=== PATIENT | male | born 1945 | race Caucasian/White ===

== ENCOUNTER → 2017-10-19 | Outpatient (CLI) | payer OTHER ==
[~2017-10-19] VITALS: Ht 165.1 cm; Wt 63.5 kg
[~2017-10-19] MED LIST: ASPIR-LOW81 MG PO; LIPITOR 20 MG T20 M1 PO; PEPCID20 MG PO; TUMS PO; VITAMIN D-32000 UNIT PO
--- NOTE | ~2017-10-19 | S ---
[facility] [place] [address] SURGICAL PATH RPT PROCEDURE Name: MILADIS,WILLIAM Room #: REG CLJoie MLupe.#: [id number] Admission: 10/19/17 Date of : 43 Discharge: Report #: [id number] Path Case #: [id number] PATHOLOGY REPORT COLLECTION DATE: 10/19/2017 RECEIVED DATE: 10/19/2017 SUBMITTING PHYS: Dr. Yonis Garcia OTHER PHYS: Dr. Huber Feng SPECIMEN(S) RECEIVED: A.Biopsy of distal esophagus rule out barretts * * * * * * * * * * * * FINAL DIAGNOSIS: A. Biopsy of distal esophagus rule out barretts: - Squamocolumnar junctional mucosa; chronically inflamed. - Negative for intestinal metaplasia. PATHOLOGIST: Kurtis Noriega M.D. REPORT ELECTRONICALLY SIGNED BY: Kurtis Noriega M.D. DATE/TIME: 10/20/2017 09:33 * * * * * * * * * * * * GROSS PATHOLOGY: Received in formalin labeled "Nayan Merchantdianne BX of distal esophagus," are 7 segments of cabello soft tissue measuring 1.9 x 1.1 x 0.2 cm in aggregate dimensions and ranging from 0.1 to 0.3 cm in maximum dimension. The specimen is submitted entirely in cassette A1. (TSD; 10/19/2017) CLINICAL HISTORY: Pre-OP DX: GERD, Hx polyps Post-OP DX: Esophagitis, hiatal hernia, duodenal diverticulum, diverticulosis INITIAL CPT CODE(S): A; 43770 Professional services performed by [facility] at [facility] [address], [place] [address] Technical services performed by [facility] at [address] [place] [id number]. [facility] [address] [place] [address] SURGICAL PATH RPT PROCEDURE Name: NAYAN REDDING Room #: REG ANDREW Guzman#: [id number] Admission: 10/19/17 Date of : 43 Discharge: Report #: [id number] Path Case #: [id number] [facility] [id number] [address] PHONE: [phone] DIRECTOR: Steve Larios M.D. * * * END OF REPORT * * *
--- NOTE | ~2017-10-19 | P ---
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 It is noted he recently stopped his PPI because of reports in the news that it cause dementia. Since then with H2 olive, he has had increasing reflux symptoms. He has not had recent dysphagia. 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 POSTOPERATIVE DIAGNOSES: 1. Grade B erosive esophagitis. 2. Small hiatus hernia. 3. Duodenal diverticulum. MEDICATIONS: Deep sedation with propofol per anesthesia. SPECIMEN: Biopsy of distal esophagus, rule out Mendes. ESTIMATED BLOOD LOSS: 3 mL. PROCEDURE: EGD with biopsy. FINDINGS: Prior to propofol sedation, procedure of upper endoscopy discussed with the patient as well as potential risks and its complications. He indicates he understands and desires to proceed. DESCRIPTION OF PROCEDURE: With the patient in left lateral decubitus position, the Fuji video endoscope was inserted in the cervical esophagus under direct vision without difficulty. Examination of this organ through its entire length revealed normal esophageal mucosa down to the distal esophagus. However, in the distal esophagus, there were several erosive columns extending up from the squamocolumnar junction of more than 2 cm. A stricture or mass was not seen. There were erosions at the GE junction. Findings were consistent with a grade B erosive esophagitis. There was irregularity and there is a question of Mendes's and biopsies were obtained. No masses were seen. In addition, a small hiatus hernia was identified. The mucosa and the hernia was normal. Scope was then advanced fully into the stomach, was examined on end view as well as retroflexed views. There was some erythema, but no ulcers or erosions. No [facility] [address] [place] [address] PROCEDURE REPORT Name: ROOSEVELT REDDING Room #: REG CLKaiser HaywardLupe.#: [id number] Admission: 10/19/17 Attend Phys: Yonis Garcia MD Discharge: Date of : 43 Report #: [id number] retained solids and liquids. Upon retroflexion, no mass lesions were seen. The hiatus hernia was seen. The pylorus, duodenal bulb, and postbulbar duodenal sweep were inspected. He was noted to have a moderate size duodenal diverticulum, but no other abnormalities were seen. At that point, the scope was withdrawn slowly and careful circumferential views confirmed the above findings. The patient tolerated procedure well. CONDITION OF THE PATIENT UPON DISCHARGE: Following procedure, the patient was drowsy and then prepared for colonoscopy. INSTRUCTIONS TO THE PATIENT AND FAMILY AT THE TIME OF DISCHARGE: He clearly has esophagitis. I advised him to resume his omeprazole 20 mg daily for at least 6 weeks. If tolerated, he may try to reduce to lower dosage. We will follow up on biopsies and make further recommendations with regard to Mendes's. If he does not have complete relief of symptoms, return to see me and follow up in the office. Proceed with colonoscopy at this time. <ELECTRONICALLY SIGNED> By: Yonis Garcia MD 10/24/17 1617 0838 [id number] Yonis Garcia MD /nt
--- NOTE | ~2017-10-19 | P ---
[facility] [place] [address] PROCEDURE REPORT Name: MILADISROOSEVELT VALLEJO Room #: REG [facility] MLupe.#: [id number] Admission: 10/19/17 Attend Phys: Yonis Garcia MD Discharge: Date of : 43 Report #: [id number] THIS REPORT FOR: //name// CC: Yonis Feng MD BRIEF HISTORY: The patient is a 72-year-old male with a history of colon polyps for high risk screening colonoscopy due to history of colon polyps. PREOPERATIVE DIAGNOSIS: High risk screening colonoscopy. POSTOPERATIVE DIAGNOSIS: Moderately severe diverticulosis coli, right and left colon. MEDICATIONS: Deep sedation with propofol per anesthesia. SPECIMEN: None. ESTIMATED BLOOD LOSS: None. PROCEDURE: Colonoscopy to cecum and terminal ileum. FINDINGS: Prior to propofol sedation, procedure of colonoscopy discussed with the patient as well as potential risks, benefits, and complications. He indicates he understands and desires to proceed. With the patient in left lateral decubitus position, digital examination was completed, which revealed no abnormalities. Subsequently, the WITOIi video colonoscope was introduced in the rectum, advanced under direct vision to the cecum. It was done with some difficulty as he had a fairly rigid sigmoid colon from his diverticular disease and with some difficulty, we were able to advance the scope through the sigmoid colon into the proximal colon. We ultimately reached the cecum, which was identified by the ileocecal valve and the appendiceal orifice. I was able to visualize the distal segment of terminal ileum, which was inspected and noted to be unremarkable. At that point, the scope was slowly withdrawn and careful circumferential views were obtained. The prep was good. The mucosa was within normal limits, normal vascular pattern, and normal light reflex. He does have significant diverticular disease including moderate disease in the proximal colon. As we withdrew the scope, again the mucosa was within normal limits. No neoplastic inflammatory changes were seen. As we withdrew the scope in left colon, particularly the distal descending and sigmoid colon, there was noted to be moderately severe diverticular disease without endoscopic evidence of diverticulitis. The scope was withdrawn in the rectum. Upon retroflexion, no abnormalities were seen. Scope was withdrawn. The patient tolerated the procedure well. [address] [address] PROCEDURE REPORT Name: MILADISROOSEVELT Room #: REG [facility].#: [id number] Admission: 10/19/17 Attend Phys: Yonis Garcia MD Discharge: Date of : 43 Report #: [id number] CONDITION OF THE PATIENT UPON DISCHARGE: Following procedure, the patient drowsy, aroused, conversant and will be discharged to home when fully ambulatory. INSTRUCTIONS TO THE PATIENT AND FAMILY AT THE TIME OF DISCHARGE: No neoplastic lesions were seen on this exam today. Advised to return in 10 years for a followup colonoscopy. I would give consideration to his overall health status at that point in time before proceeding with colonoscopy at that point. He will otherwise return to care of Dr. Huber Feng and return to see me as needed. Last colonoscopy was about 5 years ago. Withdrawal time from the cecum was 15 minutes and 5 seconds. <ELECTRONICALLY SIGNED> By: Yonis Garcia MD 10/24/17 1617 0911 1215 Yonis Garcia MD /nt
== END | disposition home or self-care (01) ==
LOC: GI 06:56
DX: Z09 Encounter for follow-up examination after completed treatment for conditions other than malignant neoplasm (principal); Z86.010 Personal history of colon polyps; K21.0 Gastro-esophageal reflux disease with esophagitis; K57.30 Diverticulosis of large intestine without perforation or abscess without bleeding; K44.9 Diaphragmatic hernia without obstruction or gangrene; K57.10 Diverticulosis of small intestine without perforation or abscess without bleeding
CPT/HCPCS: 62110; 62900